=== PATIENT | female | born 1960 | race Caucasian/White ===

== ENCOUNTER 2018-07-25 09:29 | Outpatient (CLI) | payer BC, SELFPAY ==
[2018-07-25 10:43] LABS: Hemoglobin A1C 6.2 % (4.5-6.2)
[2018-07-25 11:18] LABS: ALT 37 U/L (12-78); AST 22 U/L (15-37); Albumin 4.1 g/dL (3.4-5.0); Alkaline Phosphatase 91 U/L (46-116); Anion Gap 8.2 mmol/L (3-11); BUN 15 mg/dL (7-18); Bilirubin, Total 0.9 mg/dL (0.2-1.0); CO2 29.8 mmol/L (21.0-32.0); CREATININE 0.94 mg/dL (0.55-1.02); Calcium 9.5 mg/dL (8.5-10.1); Chloride 101 mmol/L (98-107); Cholesterol 331 mg/dL (50-200); Glucose 111 mg/dL (70-100); HDL Cholesterol 47 mg/dL (40-60); LDL CHOLESTEROL 231 mg/dL (<100); Sodium 139 mmol/L (136-145); TSH (W/Ref FT4) 2.73 uIU/mL (0.358-3.74); Total Protein 7.7 g/dL (6.4-8.2); Triglyceride 249 mg/dL (30-150)
== END 2018-07-25 09:49 ==
PROVIDERS: PCP Nurse Practitioner; Visit Provider Nurse Practitioner
DX: E78.5 Hyperlipidemia, unspecified (principal); I10 Essential (primary) hypertension; E78.49 Other hyperlipidemia; R73.01 Impaired fasting glucose
CPT/HCPCS: 36415; 80053; 80061; 83721; 83036; 84443

== ENCOUNTER 2019-02-10 00:47 | Outpatient (CLI) | payer BC, SELFPAY ==
--- NOTE | 2019-02-10 11:20 | DI.MAMMO_ITS ---
EXAM: MG MAMMO SCREENING CLINICAL HISTORY: Screening Z12.39. FINDINGS: The breasts are of moderate radiodensity. There is no evidence of a mass and there are no suspicious calcifications. When compared the previous images, there has been no change. IMPRESSION: No evidence of malignancy. This is a category 1 examination and a BI-RADS category B study and follo w-up surveillance with annual screening mammography is recommended.
== END 2019-02-10 01:07 ==
PROVIDERS: PCP Nurse Practitioner; Visit Provider Nurse Practitioner Family
DX: Z12.31 Encounter for screening mammogram for malignant neoplasm of breast (principal)
CPT/HCPCS: 77063; 77067

== ENCOUNTER 2020-01-25 12:25 | Outpatient (REF) | payer OTHER, SELFPAY ==
[2020-01-25 20:33] LABS: ALT 50 U/L (14-59); AST 27 U/L (15-37); Albumin 4.1 g/dL (3.4-5.0); Alkaline Phosphatase 85 U/L (46-116); Anion Gap 9.1 mmol/L (3-11); BUN 13 mg/dL (7-18); Bilirubin, Total 0.9 mg/dL (0.2-1.0); CO2 29.9 mmol/L (21.0-32.0); CREATININE 0.89 mg/dL (0.55-1.02); Calcium 9.8 mg/dL (8.5-10.1); Calculated LDL 201 mg/dL (<100); Chloride 103 mmol/L (98-107); Cholesterol 309 mg/dL (<200); Glucose 111 mg/dL (74-106); HDL Cholesterol 51 mg/dL (40-60); Potassium 3.6 mmol/L (3.5-5.1); Sodium 142 mmol/L (136-145); Total Protein 7.4 g/dL (6.4-8.2); Triglyceride 289 mg/dL (<150)
== END 2020-01-25 12:45 ==
LOC: NCHCN 12:25
PROVIDERS: Visit Provider Nurse Practitioner
DX: R73.03 Prediabetes (principal); E78.5 Hyperlipidemia, unspecified; I10 Essential (primary) hypertension; Z86.39 Personal history of other endocrine, nutritional and metabolic disease
CPT/HCPCS: 80053; 80061; 83036

== ENCOUNTER 2020-02-09 13:47 | Emergency (ER) | payer OTHER, SELFPAY ==
--- NOTE | 2020-02-09 13:45 | RT.EKG_ITS ---
APPROVED REPORT Exam: Resting ECG Patient Location: E HR:87 bpm ECG Measurements Heart Rate 87 AXIS NH 176 P 63 QRSd 88 QRS 31 QT 367 T 57 QTc 442 Conclusion Sinus rhythm...normal P axis, V-rate 60- 99
[2020-02-09 13:50] VITALS: BP 162/92; PULSE 99; RESP 18; TEMP 36.8; O2SAT 96
--- NOTE | 2020-02-09 14:07 | ED.GENADUL_ITS ---
Discharge Plan Disposition Patient Disposition: HOME Condition: Improving Discharge Details Clinical Impression: Spasm of thoracic back muscle Primary Care Provider: Erin Joseph ED Provider: Danny Villanueva Home Meds and New Rx's Prescriptions: Continued triamcinolone acetonide 0.1 % cream 1 applic Topical DAILY Qty: 15 RF: 2 (DME) blood-glucose meter 1 EACH misc 1 ea Miscellaneous DAILY Qty: 1 RF: 0 (DME) Blood Glucose Test 1 EACH strip 1 ea Miscellaneous DAILY Qty: 100 RF: 3 (DME) lancets 1 EACH misc 1 ea Miscellaneous DAILY Qty: 100 RF: 3 propranolol 120 mg capsule,extended release 24 hr 120 mg PO DAILY Qty: 90 RF: 3 doxepin 100 mg capsule 100 mg PO HS Qty: 90 RF: 1 chlorthalidone 50 mg tablet 50 mg PO DAILY Qty: 90 RF: 0 Discharge Instructions Instructions: Muscle Spasm (ED) Additional Instructions: May use Tylenol 650 mg every 4-6 hours as well as ibuprofen 600 mg every 6-8 hours as needed for pain. Apply warm heat and gentle massage to area to ease discomfort. You may massage with a tennis ball. Family members may assist you with your housekeeping. I will prescribe you physical therapy, please follow-up with them this week. Return if you develop a rash, fever, cough or shortness of breath, or any other acute concerns. Stand Alone Forms: Physical Therapy Referral Medical Decision Making 59-year-old female presents with 4 days of intrathoracic pain that feels like spasms. Is worse with some body positions and seemed to begin after painting her home. She denied a fall or injury. She did not have chest pain or respiratory symptoms. She arrives slightly hypertensive and in distress but afebrile with normal oxygenation. She has palpable tender muscular spasm across the upper thoracic region between the scapula a. Differential diagnosis is muscle strain and spasm, must exclude ACS or intrathoracic abnormality. Patient had IV access established, she underwent unremarkable screening EKG which shows a sinus rhythm, and was referred for laboratory testing and chest x-ray. Patient given fluid bolus, ketorolac, 1 g of magnesium for its smooth muscle relaxing properties. Laboratories including CBC, comprehensive panel, troponin are unremarkable. Note of potassium 3.4. Chest x-ray without acute findings. Following fluids and medications, patient with some improvement. This consistent with spasm in my opinion and we discussed home management strategies at the bedside. She declines muscle relaxant. I will refer her for physical therapy as a believe they may aid her in resolution. She is stable and appropriate for discharge to home. Lab Data Lab results reviewed: Yes I reviewed the patient's lab results. Labs: Laboratory Results - last 24 hr 02/09/20 02/09/20 14:17 14:17 WBC 5.91 RBC 4.93 Hgb 15.0 Hct 43.3 MCV 87.8 MCH 30.4 MCHC 34.6 RDW 12.3 Plt Count 299 MPV 9.6 Immature Gran % 0.2 Neutrophils % 65.5 Lymphocytes % 20.3 Monocytes % 9.1 Eosinophils % 4.1 Basophils % 0.8 Nucleated RBC % 0 Absolute Neutrophils 3.87 Absolute Lymphocytes 1.20 Absolute Monocytes 0.54 Absolute Eosinophils 0.24 Absolute Basophils 0.05 Sodium 136 Potassium 3.4 L Chloride 99 Carbon Dioxide 29.5 Anion Gap 7.5 BUN 15 Creatinine 0.93 Estimated GFR/1.73 m2 >= 60.00 Glucose 119 H Calcium 9.2 Magnesium 2.1 Total Bilirubin 0.9 AST 29 ALT 44 Alkaline Phosphatase 84 Troponin I < 0.05 Total Protein 7.7 Albumin 3.9 HPI General Mode of arrival: ambulatory . Date/Time Provider Initiated Documentation: 02/09/20 13:48 . Limitations to Documentation: no limitations . Information obtained by: patient . History of Present Illness 59 year old F presents to the emergency department with the chief complaint of 4 days of upper back pain and spasm, described as moderate, Quality is described as co nstant, and is localized to the back. Patient reports radiation to (Radiates to shoulders, not to chest). Patient started experiencing this day(s) and it has been constant. No relieving factors improve symptom(s), No exacerbating factors reported . Patient notes denies chest pain, fever/chills, shortness of breath and syncope. Patient did receive the following treatments prior to arrival, other (Topical liniment patch) Related Data Home Medications Medication Instructions Recorded Confirmed Blood Glucose Test #100 strip 09/19/16 12/15/18 blood-glucose meter #1 unit 09/19/16 12/15/18 lancets #100 ea 09/19/16 12/15/18 triamcinolone acetonide 0.1 % 1 applic TOPICAL DAILY #15 gm 08/22/19 09/15/20 topical cream propranolol 120 mg capsule,24 120 mg PO DAILY #90 cap 06/23/19 02/09/20 hr,extended release doxepin 100 mg capsule 100 mg PO HS #90 cap NS 08/05/19 02/09/20 chlorthalidone 50 mg tablet 50 mg PO DAILY #90 tab 11/10/19 02/09/20 Previous Rx's Medication Instructions Recorded triamcinolone acetonide 0.1 % 1 applic TOPICAL DAILY #15 gm 01/15/19 topical cream propranolol 120 mg capsule,24 120 mg PO DAILY #90 cap 06/23/19 hr,extended release doxepin 100 mg capsule 100 mg PO HS #90 cap NS 08/05/19 chlorthalidone 50 mg tablet 50 mg PO DAILY #90 tab 11/10/19 Allergies Allergy/AdvReac Type Severity Reaction Status Date / Time Sulfa (Sulfonamide Allergy Intermediate Skin Rash Verified 01/15/19 11:10 Antibiotics) rosuvastatin [From Crestor] AdvReac Intermediate anxiety, Verified 01/15/19 11:10 muscle tightness Bubgupv-Tsb-Fiz Reductase AdvReac Intermediate Muscles Verified 01/15/19 11:10 Inhibitor achy fish derived AdvReac Mild Increased Verified 01/15/19 11:10 anxiety potassium pills AdvReac Intermediate Uncoded 01/15/19 11:10 General Stated Complaint: Nk/Back Pain MELODY: 3 Review of Systems Narrative: No nausea, diaphoresis, shortness of breath or cough. Denies chest pain or palpitations. No fall or injury. 8 systems reviewed and otherwise negative [facility] Medical History Hypertension Migraines Tachycardia during menopause years Surgical History Cervical polypectomy Colonoscopy - IV Sedation (03/20/16) Endometrial Ablation for menorrhagia in her 30's. Family History Mother Breast cancer Other Personal history of malignant neoplasm Social History Smoking/Tobacco Use Status: Never Alcohol Intake: current Alcohol Intake frequency: a few times a week Alcohol type: beer and wine Drug use: Never Substance use type: does not use Household members: spouse Number of Children: 2 current occupation: homemaker What type of physical activity do you participate in: none Do you feel safe at home: Yes Do you feel safe in your relationship?: Yes Exam Narrative Exam Narrative: GEN: awake, alert, oriented 3. Pleasant, well groomed, interactive. HEAD: Normocephalic, atraumatic ENT: Mucous membranes moist, oropharynx unremarkable, External ear exam unremarkable EYES: PERRL, EOMI NECK: Full ROM, no TAMARA, no menigismus CHEST/RESP: Nontender, clear to auscultation bilateral, no wheeze/rhonchi/rales Back: Intrascapular tenderness and paraspinous muscular spasm present. No midline tenderness, step-off or deformity. CARDIOVASCULAR: RRR, no murmur, rub mary. 2+ Rad pulse bilateral ABDOMEN: Soft, nontender, no mass. +Bowel sounds EXT: Full ROM, no edema, no rash Neuro: Grossly normal neurologic exam, conversant, interactive. Psych: Speech fluent, thoughts congruent, affect normal Course Vital Signs Vital signs: Vital Signs Temperature 36.8 C 02/09/20 13:50 Pulse 99 H 02/09/20 13:50 Respiratory Rate 18 02/09/20 13:50 Blood Pressure 162/92 H 02/09/20 13:50 Pulse Oximetry 96 02/09/20 13:50 Temperature 36.8 C 02/09/20 13:50 Temperature Source Temporal Artery Scan 02/09/20 13:50 Pulse 99 H 02/09/20 13:50 Respiratory Rate 18 02/09/20 13:50 Respiratory Effort Non-Labored 02/09/20 13:54 Blood Pressure 162/92 H 02/09/20 13:50 Blood Pressure Position Sitting 02/09/20 13:50 Pulse Oximetry 96 02/09/20 13:50 Oxygen Delivery Method Room Air 02/09/20 13:50 Oxygen Flow Rate 0 02/09/20 13:50 Pain Level 7 02/09/20 14:02
[2020-02-09] MEDS: Ketorolac 15 MG/ML VIAL IVP (14:27)
[2020-02-09] MEDS: MAGNESIUM SULFATE 1 GM/100 ML BAG IVPB (14:28)
[2020-02-09 14:29] LABS: Abs Immature Grans 0.01 10^3/uL (0.0-0.06); Absolute Basophil Count 0.05 10^3/uL (0.0-0.2); Absolute Eosinophil Count 0.24 10^3/uL (0.0-0.7); Absolute Monocyte Count 0.54 10^3/uL (0.1-0.8); Absolute Neutrophil Count 3.87 10^3/uL (1.2-6.7); Basophils % 0.8; Eosinophils % 4.1; HCT 43.3 % (36.0-46.0); Immature Grans % 0.2; Lymphocytes % 20.3; MCH 30.4 pg (27.0-33.0); MCHC 34.6 % (32.0-36.0); MCV 87.8 fL (80-95); MPV 9.6 fL (8.0-11.0); Monocytes % 9.1; Neutrophils % 65.5; Nucleated RBC 0 %; Platelet Count 299 10^3/uL (130-400); RBC 4.93 10^6/uL (3.93-5.22); RDW 12.3 % (11.7-14.6); RDW-SD 39.4 fL; WBC 5.91 10^3/uL (4.4-10.8)
[2020-02-09] MEDS: Normal Saline 500 ML 1000 ML IV (14:34)
--- NOTE | 2020-02-09 14:49 | DI.RAD_ITS ---
EXAM: XR CHEST 2V PA LATERAL CLINICAL HISTORY: Intrascapular pain TECHNIQUE: 2D digital imaging was performed. COMPARISON: CR CHEST 2 VIEWS PA,LAT from 08/22/2017 FINDINGS: The heart is not enlarged. The lungs are clear and well expanded. No pleural effusion seen. Mediastin al contours appear intact. IMPRESSION: Normal chest RADIATION DOSE DELIVERED: Total DLP
[2020-02-09 14:52] LABS: ALT 44 U/L (14-59); AST 29 U/L (15-37); Albumin 3.9 g/dL (3.4-5.0); Alkaline Phosphatase 84 U/L (46-116); Anion Gap 7.5 mmol/L (3-11); BUN 15 mg/dL (7-18); Bilirubin, Total 0.9 mg/dL (0.2-1.0); CO2 29.5 mmol/L (21.0-32.0); CREATININE 0.93 mg/dL (0.55-1.02); Calcium 9.2 mg/dL (8.5-10.1); Chloride 99 mmol/L (98-107); Glucose 119 mg/dL (74-106); Magnesium 2.1 mg/dL (1.8-2.4); Potassium 3.4 mmol/L (3.5-5.1); Sodium 136 mmol/L (136-145); Total Protein 7.7 g/dL (6.4-8.2); Troponin I < 0.05 ng/mL (<0.06)
[2020-02-09 15:06] VITALS: O2SAT 96
[2020-02-09 15:10] VITALS: PULSE 76; RESP 14; O2SAT 98
[2020-02-09 15:20] VITALS: PULSE 69; RESP 13; O2SAT 97
[2020-02-09 15:39] VITALS: BP 125/76; PULSE 76; RESP 15; TEMP 36.6; O2SAT 96
== END 2020-02-09 15:44 | disposition home or self-care (01) ==
PROVIDERS: Emergency Provider Emergency Medicine; PCP Nurse Practitioner
DX: M62.830 Muscle spasm of back (principal); I10 Essential (primary) hypertension
CPT/HCPCS: 36415; 80053; 93005; 96361; 96365; 96375; 99285; 71046; 83735; 84484; 85025; 93010; 99284; J1885; J3475

== ENCOUNTER 2020-03-10 01:46 | Outpatient (CLI) | payer OTHER, SELFPAY ==
--- NOTE | 2020-03-10 12:31 | DI.RAD_ITS ---
EXAM: XR CERVICAL SPINE COMP 4-5V CLINICAL HISTORY: CERVICALGIA,M54.2. TECHNIQUE: 2D digital imaging was performed. COMPARISON: No exams were available for comparison FINDINGS: The odontoid is intact. The lateral masses are well aligned. Aznp-th-amujuxte degenerative changes are seen in the cervical spine with endplate osteophytes and mild joint space narrowing. The finding s are most marked at the C4-C5 level. No acute fracture or subluxation is seen. No significant neur al foraminal encroachment is seen. The prevertebral soft tissues are unremarkable. IMPRESSION: Romx-ey-rmloffng degenerative changes in the cervical spine. DATA REPOSITORY: RADIATION DOSE DELIVERED:
== END 2020-03-10 02:06 ==
PROVIDERS: PCP Nurse Practitioner; Visit Provider Nurse Practitioner
DX: M47.812 Spondylosis without myelopathy or radiculopathy, cervical region (principal)
CPT/HCPCS: 72050

== ENCOUNTER 2021-04-11 08:40 | Outpatient (CLI) | payer OTHER, SELFPAY ==
--- NOTE | 2021-04-11 15:48 | DI.MAMMO_ITS ---
Exam(s) MAMMO SCREENING EXAM: MAMMO SCREENING CLINICAL HISTORY: SCREENING, Z12.39 TECHNIQUE: Mammograms were interpreted according to the usual protocol including computer analysis w [employer] CAD system, tomosynthesis and C-view imaging. COMPARISON: 2012 through 2018 FINDINGS: The breasts are composed of scattered fibroglandular densities, Breast Density category B. No suspicious masses or suspicious microcalcifications are seen. No skin thickening or abnormal axillary lymph nodes are seen. There has been no significant change from prior exams. IMPRESSION: BI-RADS Category 1, Negative mammogram Yearly screening mammography is recommended. Breast Density - Category B, scattered fibroglandular densities. A negative radiographic report should not delay biopsy if a dominant or clinically suspicious mass is present. Up to ten percent of cancers are not identified on mammography. A negative report may reinforce clinical impression. Adenosis and dense breasts may obscure an underlying neoplasm. False positive reports average 6 to 10%. Patient will receive a letter notifying them of these results.
== END 2021-04-11 09:00 ==
PROVIDERS: PCP Nurse Practitioner; Visit Provider Nurse Practitioner
DX: Z12.31 Encounter for screening mammogram for malignant neoplasm of breast (principal)
CPT/HCPCS: 77063; 77067

== ENCOUNTER 2021-07-31 04:30 | Outpatient (CLI) | payer BC, SELFPAY ==
[2021-07-31 09:25] LABS: ALT 44 U/L (14-59); AST 31 U/L (15-37); Alkaline Phosphatase 81 U/L (46-116); Anion Gap 9.1 mmol/L (3-11); BUN 14 mg/dL (7-18); Bilirubin, Total 1.2 mg/dL (0.2-1.0); CO2 30.9 mmol/L (21.0-32.0); Calculated LDL 227 mg/dL (<100); Chloride 99 mmol/L (98-107); Cholesterol 329 mg/dL (<200); Estimated GFR 56.56 (mL/min/1.73m2); Glucose 106 mg/dL (74-106); HDL Cholesterol 55 mg/dL (40-60); Potassium 3.3 mmol/L (3.5-5.1); Sodium 139 mmol/L (136-145); Total Protein 7.4 g/dL (6.4-8.2); Triglyceride 238 mg/dL (<150)
== END 2021-07-31 04:31 | disposition home or self-care (01) ==
PROVIDERS: PCP Nurse Practitioner; Visit Provider Nurse Practitioner Family
DX: Z00.00 Encounter for general adult medical examination without abnormal findings
CPT/HCPCS: 36415; 80053; 80061; 83036

== ENCOUNTER 2021-09-15 18:58 | Outpatient (REF) | payer BC, SELFPAY ==
[2021-09-17 11:43] LABS: COVID-19 RT-PCR UVMMC Result Negative (Negative)
== END 2021-09-15 18:59 | disposition home or self-care (01) ==
LOC: LBN 18:58
PROVIDERS: PCP Nurse Practitioner; Visit Provider Physician Assistant Medical
DX: J01.90 Acute sinusitis, unspecified (principal); Z20.822 Contact with and (suspected) exposure to COVID-19
CPT/HCPCS: U0003

== ENCOUNTER 2022-01-12 18:03 | Outpatient (REF) | payer BC, SELFPAY ==
[2022-01-12 14:53] LABS: Source Nasal/Nares
[2022-01-12 18:19] LABS: COVID-19 PCR Negative (Negative)
== END 2022-01-12 18:04 | disposition home or self-care (01) ==
LOC: NCHCN 18:03
PROVIDERS: PCP Nurse Practitioner; Visit Provider Nurse Practitioner Family
DX: Z20.822 Contact with and (suspected) exposure to COVID-19 (principal)
CPT/HCPCS: 87635

== ENCOUNTER 2022-07-03 17:07 | Outpatient (REF) | payer OTHER, SELFPAY ==
--- NOTE | 2022-07-03 14:00 | PAPFT_PTH ---
PATIENT: Erin Leon LOC: N U#:[id number] AGE/SX: 62/F ROOM: RE07/03/[address]: Desi Ibarra NP : 1960 BED: DIS: 07/03/2022 SPEC #: [id number] RECD: 07/03/22 17:53 STATUS: RACHEL LOPEZ #: [id number] CAROL: 07/03/22 14:[address]: Desi Ibarra NP DEPT: COUNTS INCLUDE 234 BEDS AT THE [facility] Cytology RECD BY: Allyssa Jeter Tissues: 1 - CX/ENDOCX FOR PAP SMEARS Procedures: PAP THIN PREP/UVM Screening HPV DNA PROBE Comments: [id number]
== END 2022-07-03 17:08 | disposition home or self-care (01) ==
LOC: LBN 17:07
PROVIDERS: Visit Provider Nurse Practitioner Women's Health
DX: Z12.4 Encounter for screening for malignant neoplasm of cervix (principal); Z11.51 Encounter for screening for human papillomavirus (HPV)
CPT/HCPCS: 88142; 87624

== ENCOUNTER 2022-07-24 01:05 | Outpatient (CLI) | payer OTHER, SELFPAY ==
--- NOTE | 2022-07-24 12:00 | DI.MAMMO_ITS ---
Exam(s) MAMMO SCREENING EXAM: MAMMO SCREENING CLINICAL HISTORY: screening. TECHNIQUE: Bilateral full field digital CC and MLO mammographic images were obtained with 3D tomosyn thesis and utilizing computer aided detection (CAD). COMPARISON: Prior mammograms were reviewed. FINDINGS: There has been no significant change in the appearance and distribution of the fibroglandular tissue. There are no CAD designations. There are no new spiculated masses nor malignant appearing microcalcification groups. There is no significant architectural distortion nor skin thickening-retraction. IMPRESSION: No radiographic evidence of malignancy. BI-RADS Category 1 - Negative Breast Density - Category B - Scattered areas of fibroglandular density Breast density Category C or D implies that the patient has dense breast tissue. Dense breast tissue can make it harder to find cancer on a mammogram. Dense breast tissue is also associated with an incr eased risk of breast cancer. This information about the result of the mammogram report was provided to the patient to raise their awareness. Use this report when you speak with the patient about their risks for breast cancer, which includes their family history. At that time, you may recommend additional screening tests (Ultrasoun d or MRI) as these tests may add significant information. A negative radiographic report should not delay biopsy if a dominant or clinically suspicious mass is present. Up to ten percent of cancers are not identified on mammography. A negative report may reinforce clinical impression. Adenosis and dense breasts may obscure an underlying neoplasm. False positive reports average 6 to 10%. Patient will receive a letter notifying them of these results.
== END 2022-07-24 01:25 ==
LOC: DI 01:05
PROVIDERS: PCP Nurse Practitioner Family; Visit Provider Nurse Practitioner Women's Health
DX: Z12.31 Encounter for screening mammogram for malignant neoplasm of breast (principal)
CPT/HCPCS: 77063; 77067

== ENCOUNTER 2022-09-05 15:38 | Outpatient (REF) | payer OTHER, SELFPAY ==
[2022-09-05 20:02] LABS: Hemoglobin A1C 5.9 % (<5.7)
[2022-09-05 20:04] LABS: ALT 61 U/L (14-59); AST 27 U/L (15-37); Albumin 4.2 g/dL (3.4-5.0); Alkaline Phosphatase 78 U/L (46-116); Anion Gap 6.3 mmol/L (3-11); BUN 14 mg/dL (7-18); Bilirubin, Total 0.7 mg/dL (0.2-1.0); CO2 29.7 mmol/L (21.0-32.0); CREATININE 0.9 mg/dL (0.55-1.02); Calcium 9.3 mg/dL (8.5-10.1); Calculated LDL 239 mg/dL (<100); Chloride 102 mmol/L (98-107); Cholesterol 341 mg/dL (<200); Estimated GFR 72.73 (mL/min/1.73m2); Glucose 104 mg/dL (74-106); HDL Cholesterol 58 mg/dL (40-60); Potassium 3.7 mmol/L (3.5-5.1); Sodium 138 mmol/L (136-145); Total Protein 7.7 g/dL (6.4-8.2); Triglyceride 221 mg/dL (<150)
== END 2022-09-05 15:39 | disposition home or self-care (01) ==
LOC: NCHCN 15:38
PROVIDERS: PCP Nurse Practitioner Family; Visit Provider Nurse Practitioner Family
DX: R73.03 Prediabetes (principal); Z86.39 Personal history of other endocrine, nutritional and metabolic disease; E78.5 Hyperlipidemia, unspecified
CPT/HCPCS: 80053; 80061; 83036

== ENCOUNTER 2024-02-04 00:57 | Outpatient (CLI) | payer OTHER, SELFPAY ==
--- NOTE | 2024-02-04 07:30 | DI.MAMMO_ITS ---
Exam(s) MAMMO SCREENING EXAM: MAMMO SCREENING CLINICAL HISTORY: screening,Z12.39 TECHNIQUE: Mammograms were interpreted according to the usual protocol including computer analysis w [employer] CAD system, tomosynthesis and C-view imaging. COMPARISON: 2013 through 2022 FINDINGS: The breasts are composed of scattered fibroglandular densities, Breast Density category B. No suspicious masses or suspicious microcalcifications are seen. No skin thickening or abnormal axillary lymph nodes are seen. There has been no significant change from prior exams. IMPRESSION: BI-RADS Category 1, Negative mammogram Yearly screening mammography is recommended. Breast Density - Category B, scattered fibroglandular densities. A negative radiographic report should not delay biopsy if a dominant or clinically suspicious mass is present. Up to ten percent of cancers are not identified on mammography. A negative report may reinforce clinical impression. Adenosis and dense breasts may obscure an underlying neoplasm. False positive reports average 6 to 10%. Patient will receive a letter notifying them of these results.
== END 2024-02-04 01:17 ==
LOC: DI 00:57
PROVIDERS: PCP Nurse Practitioner Family; Visit Provider Nurse Practitioner Family
DX: Z12.31 Encounter for screening mammogram for malignant neoplasm of breast (principal)
CPT/HCPCS: 77063; 77067

== ENCOUNTER 2025-02-24 04:01 | Outpatient (CLI) | payer BC, SELFPAY ==
[2025-02-24 09:11] LABS: Hemoglobin A1C 5.8 % (<5.7)
[2025-02-24 09:26] LABS: ALT 36 U/L (14-59); AST 24 U/L (15-37); Albumin 4.0 g/dL (3.4-5.0); Alkaline Phosphatase 76 U/L (46-116); Anion Gap 6.5 mmol/L (3-11); BUN 16 mg/dL (7-18); Bilirubin, Total 1.4 mg/dL (0.2-1.0); CO2 33.5 mmol/L (21.0-32.0); Calcium 9.2 mg/dL (8.5-10.1); Calculated LDL 225 mg/dL (<100); Chloride 100 mmol/L (98-107); Cholesterol 317 mg/dL (<200); Estimated GFR 82.74 (mL/min/1.73m2); Glucose 107 mg/dL (74-106); HDL Cholesterol 62 mg/dL (>or=50); Potassium 3.2 mmol/L (3.5-5.1); Sodium 140 mmol/L (136-145); Total Protein 7.9 g/dL (6.4-8.2); Triglyceride 150 mg/dL (<150)
[2025-02-24 18:58] LABS: HBs Antibody, Quant <3.1 mIU/mL (See Note); HIV-1/2 Ag & Ab Screen Negative (Negative); Hepatitis B Surface Antigen Negative (Negative)
[2025-02-24 18:59] LABS: Hepatitis C Ab w Rflx HCV PCR Negative (Negative)
== END 2025-02-24 04:02 | disposition home or self-care (01) ==
PROVIDERS: PCP Nurse Practitioner Family; Visit Provider Nurse Practitioner Family
DX: Z11.4 Encounter for screening for human immunodeficiency virus [HIV] (principal); E78.5 Hyperlipidemia, unspecified; I10 Essential (primary) hypertension; R73.03 Prediabetes; Z11.59 Encounter for screening for other viral diseases
CPT/HCPCS: 36415; 80053; 80061; 86704; 86706; 86803; 87340; 87389; 83036

== ENCOUNTER → 2025-04-13 02:06 | Outpatient (CLI) | payer BC, SELFPAY ==
--- NOTE | 2025-04-13 07:00 | DI.MAMMO_ITS ---
Exam(s) MAMMO SCREENING EXAM: MAMMO SCREENING CLINICAL HISTORY: screening,Z12.39 TECHNIQUE: Mammograms were interpreted according to the usual protocol including computer analysis with CAD system, tomosynthesis and C-view imaging. COMPARISON: 2015 through 2023 FINDINGS: The breasts are composed of scattered fibroglandular densities, Breast Density category B. No suspicious masses or suspicious microcalcifications are seen. No skin thickening or abnormal axillary lymph nodes are seen. There has been no significant change from prior exams. IMPRESSION: BI-RADS Category 1, Negative mammogram Yearly screening mammography is recommended. Breast Density - Category B - There are scattered areas of fibroglandular density. Breast density Category C or D implies that the patient has dense breast tissue. Dense breast tissue can make it harder to find cancer on a mammogram. Dense breast tissue is also associated with an increased risk of breast cancer. This information about the result of the mammogram report was provided to the patient to raise their awareness. Use this report when you speak with the patient about their risks for breast cancer, which includes their family history. At that time, you may recommend additional screening tests (Ultrasound or MRI) as these tests may add significant information. A negative radiographic report should not delay biopsy if a dominant or clinically suspicious mass is present. Up to ten percent of cancers are not identified on mammography. A negative report may reinforce clinical impression. Adenosis and dense breasts may obscure an underlying neoplasm. False positive reports average 6 to 10%. Patient will receive a letter notifying them of these results.
== END ==
LOC: DI 02:07
PROVIDERS: PCP Nurse Practitioner Family; Visit Provider Nurse Practitioner Family
DX: Z12.31 Encounter for screening mammogram for malignant neoplasm of breast (principal); R92.323 Mammographic fibroglandular density, bilateral breasts
CPT/HCPCS: 77063; 77067

== ENCOUNTER 2025-04-13 03:22 | Outpatient (CLI) | payer BC, SELFPAY ==
[2025-04-13 12:38] LABS: Anion Gap 8.6 mmol/L (3-11); BUN 20 mg/dL (9-23); CO2 31.7 mmol/L (20.0-31.0); Calcium 9.3 mg/dL (8.3-10.6); Chloride 99 mmol/L (98-107); Glucose 98 mg/dL (74-106); Potassium 3.4 mmol/L (3.5-5.1); Sodium 139 mmol/L (136-145)
== END 2025-04-13 03:23 | disposition home or self-care (01) ==
PROVIDERS: PCP Nurse Practitioner Family; Visit Provider Nurse Practitioner Family
DX: E87.6 Hypokalemia (principal)
CPT/HCPCS: 36415; 80048